=== PATIENT | female | born 1975 | race African-American/Black ===

== ENCOUNTER 2017-05-28 18:03 | Emergency (ER) | payer OTHER ==
[~2017-05-28 18:03] MED LIST: FLEXERIL10 MG PO; GARCINIA CAMBO1 EACH PO; HYDROCODON-ACE1 EAC7 PO; MEDROL DOSEPAK4 MG PO; MIRALAX17 GM PO; NO MEDICATIONS; NORCO 10/3251 TAB PO; OMEPRAZOLE40 MG PO; SENOKOT S1 TAB PO; TYLENOL #3 PO; ZOFRAN PO
[2017-05-28 18:55] LABS: URINE SOURCE CLEAN CATCH
[2017-05-28 18:57] LABS: URINE APPEARANCE CLEAR; URINE BILIRUBIN NEG (NEG); URINE BLOOD NEG (NEG); URINE COLOR YELLOW; URINE GLUCOSE NEG (NORM); URINE KETONE NEG (NEG); URINE LEUKOCYTE ESTERASE NEG (NEG); URINE NITRATE NEG (NEG); URINE PROTEIN NEG (NEG); URINE SPECIFIC GRAVITY 1.015 (1.003-1.035); URINE UROBILINOGEN 0.2 MG/DL (NORM)
[2017-05-28 18:58] LABS: MICRO INDICATED? NO
== END 2017-05-28 19:30 | disposition home or self-care (01) ==
LOC: SED 18:03
PROVIDERS: Physician Assistant Medical
DX: R10.2 Pelvic and perineal pain (principal); Z90.49 Acquired absence of other specified parts of digestive tract
CPT/HCPCS: 81003; 84703; 99284